=== PATIENT | female | born 1970 | race Two or more races ===

== ENCOUNTER 2024-09-24 10:30 | Outpatient (RCR) | payer MEDICAID, SELFPAY ==
--- NOTE | 2024-09-09 15:08 | PT.ODAYNRPT ---
PT Outpatient Daily Note OP Daily Note Outpatient Physical Therapy Treatment Date: 09/09/24 Visit Reasons: Left knee surgery Subjective: Overall better but she wants to walk better. Objective: See F/S for therex Assessment: Pt ambulates with small step length and lateral sway Plan: Continue per POC Length of Time (minutes) of Treatment: 30 Minutes Procedure Charges Therapeutic Exercise 30 minutes: Yes
--- NOTE | 2024-09-18 13:41 | PTNOTE_ITS ---
PT Outpatient Daily Note OP Daily Note Outpatient Physical Therapy Treatment Date: 09/18/24 Visit Reasons: Left knee surgery Subjective: Pt reports she feels more tired today than usual. As per pt she is has been having days where she feels short of breath and tired. Pt has an appointment with her melt room operator soon. Objective: Please see flow sheet for ther ex list. Assessment: Interventions given with frequent breaks to accommodate fatigue. Plan: Continue with POC. Length of Time (minutes) of Treatment: 30 Minutes Procedure Charges Therapeutic Exercise 30 minutes: Yes
--- NOTE | 2024-09-24 10:36 | PT.ODAYNRPT ---
PT Outpatient Daily Note OP Daily Note Outpatient Physical Therapy Treatment Date: 09/24/24 Visit Reasons: Left knee surgery Subjective: Pt reports L knee is doing better Objective: Please see flow sheet for ther ex list. Assessment: Pt performed step up and lateral step up exercise initially pt hesitant using [employer] PROCESS SERVER DEVELOPER, after a few reps pt was able to perform steps with no WEBSP[employer] PROCESS SERVER DEVELOPER. Plan: Continue progressing per post op protocol Length of Time (minutes) of Treatment: 30 Minutes Procedure Charges Therapeutic Exercise 30 minutes: Yes
== END 2024-10-04 23:59 | disposition home or self-care (01) ==
LOC: CPTX 10:30
PROVIDERS: PCP Orthopaedic Surgery Orthopaedic Trauma; Referring Provider Orthopaedic Surgery Orthopaedic Trauma; Visit Provider Orthopaedic Surgery Orthopaedic Trauma
DX: M25.562 Pain in left knee (principal); Z96.652 Presence of left artificial knee joint
CPT/HCPCS: 97110